=== PATIENT | male | born 1940 | race African-American/Black ===

== ENCOUNTER 2019-01-02 08:12 | Outpatient (CLI) | payer MEDICARE, OTHER ==
[2019-01-02] VITALS (15 sets, daily range): BP systolic 129–170; BP diastolic 67–90; PULSE 53–96; TEMP 97.5
[~2019-01-02] VITALS: Ht 177.8 cm; Wt 50.6 kg
[~2019-01-02 08:12] MED LIST: CALAN SR240 MG PO; COMBIGAN; COMBIGAN 0.2%-010 ML OU; FERROUS SU325 MG/TAB PO; GLIPIZIDE2.5 MG PO; LIPITOR40 MG PO; LISINOPRIL/HCTZ1 TAB PO; PERCOCET 325 MG1 TA2 PO; PRINZIDE 25 MG-1 TAB; XALATAN EYE DROPS OU
[2019-01-02] MEDS ORDERED: CEPHALEXIN500 M1 PO (08:38)
[2019-01-02] MEDS ORDERED: FERROUS GL325 MG/TAB PO (08:39)
[2019-01-02] MEDS ORDERED: ARICEPT10 MG PO (08:39)
--- NOTE | 2019-01-02 09:05 | NUR ---
pt to ct per wheelchair. Monitors applied and O2 on at 2l/nc. Pt positioned supine on ct table.
--- NOTE | 2019-01-02 09:10 | NUR ---
Dr Fofana into talk with pt.
--- NOTE | 2019-01-02 09:28 | NUR ---
Specimens obtained by Dr Fofana and placed in formalin. Specimen labeled.
--- NOTE | 2019-01-02 09:45 | NUR ---
Pt to EU 10 per cart s/p lung bx. Pt did not receive sedation per Sathish Garcia RN. Pt resting well, at bedside.
--- NOTE | 2019-01-02 12:15 | NUR ---
Pt has ambulated and voided. PIV removed with catheter intact.
--- NOTE | 2019-01-02 12:45 | NUR ---
Pt discharged per w/c by nurse with .
== END 2019-01-02 13:41 | disposition home or self-care (01) ==
LOC: COL.RAD 08:12
DX: R91.8 Other nonspecific abnormal finding of lung field (principal)